=== PATIENT | female | born 1990 | race Hispanic/Latino ===

== ENCOUNTER 2019-08-26 14:42 | Outpatient (CLI) | payer BC ==
--- NOTE | 2019-08-26 15:25 | ULT ---
EXAM: OB ULTRASOUND COMPLETE GREATER THAN 14 WEEKS: 08/26/19 HISTORY: Anatomy. Size and dates, cervical length. FINDINGS: Single viable intrauterine fetus is noted in cephalic presentation. The placenta is anterior. Amnioti c fluid is within normal limits. heart rate 146 bpm. Cervical length 4.8 cm. ANATOMY: Visualized brain, four chamber heart, three vessel cord, stomach, bladder, kidneys, spine, and extremity regions are unremarkable. BIOMETRY: BPD 4.9 cm 21 weeks, 0 day Head circumference 18.2 cm 20 weeks, 4 days Abdominal circumference 15.8 cm 21 weeks, 0 day Femur length 3.3 cm 20 weeks, 3 days IMPRESSION: Single viable intrauterine fetus at 20 weeks, 6 days. JOVANY 01/07/20. Estimated weight 369 grams. POS: RRE
== END 2019-08-26 14:43 | disposition home or self-care (01) ==
LOC: BICULT 14:42
PROVIDERS: ATTEND Family Medicine
DX: Z34.82 Encounter for supervision of other normal pregnancy, second trimester (principal); Z3A.20 20 weeks gestation of pregnancy
CPT/HCPCS: 76805

== ENCOUNTER 2022-06-25 10:21 | Outpatient (CLI) | payer BC | END 2022-06-25 10:22 | disposition home or self-care (01) | LOC: BICULT 10:21 | PROVIDERS: ATTEND Advanced Practice Midwife | DX: Z34.93 Encounter for supervision of normal pregnancy, unspecified, third trimester (principal); Z3A.31 31 weeks gestation of pregnancy | CPT/HCPCS: 76805 ==